=== PATIENT | male | born 1980 | race Caucasian/White ===

== ENCOUNTER → 2017-09-16 | Outpatient (CLI) | payer BC ==
[~2017-09-16] VITALS: Ht 190.5 cm; Wt 106.1 kg
[~2017-09-16] MED LIST: LISINOPRIL10 MG PO; NABUMETONE 500500 M1 PO; ROXICODONE5 MG PO
--- NOTE | ~2017-09-16 | HPC ---
[facility] [address] [place] [address] PAIN MANAGEMENT CONSULTATION Name: JOSE HERRMANNTIS Juju Room #: REG [facility].#: [id number] Admission: 09/16/17 Attend Phys: Timbo Rod DO Discharge: Date of : 76 Report #: [id number] THIS REPORT FOR: //name// CC: Sandra Rod DATE OF SERVICE: 09/16/2017 REFERRING PHYSICIAN: Sandra Vinson MD CHIEF COMPLAINT: Low back pain, left lower extremity pain and paresthesias. HISTORY OF PRESENT ILLNESS: As you know, the patient is a very pleasant 37-year-old male who has been referred to our service by his primary care physician, Dr. Sandra Vinson for evaluation for low back pain, left lower extremity pain with paresthesias. The patient indicates he has undergone physical therapy, which he did not find very helpful. He has been started on tramadol for pain control, but this leads to nausea, vomiting and a sensation of dysphoria that he cannot tolerate. Due to lack of improvement with more conservative treatment options, the patient was referred to our clinic. The patient indicates his pain began to intensify on 09/06/2017, no inciting injury or trauma. He states pain is continuous, steady and constant, describes the pain as burning, pulling, sharp and stabbing, places current pain score anywhere from 3-8/10, daily average at 3-8/10, worst pain has been is 9/10. The patient states that sitting and doing certain activities exacerbate symptoms, staying upright and straight improves his pain. He has been referred to our service by his primary care physician for evaluation, he comes to us today without imaging studies. PAST MEDICAL HISTORY: 1. Hypertension. 2. Diverticulosis. PAST SURGICAL HISTORY: 1. Perforated diverticulum repair and appendectomy. 2. Bilateral . 3. Tonsillectomy. SOCIAL HISTORY: The patient denies tobacco, alcohol, IV or illicit drug use. He is employed in sales. He is working, not receiving workmen's compensation nor is he trying to obtain disability benefits. He is not in litigation in regards to pain. REVIEW OF SYSTEMS: Positive for asthma, this is exercise-induced; low back pain, left lower extremity pain, diverticulitis, and vision changes. All other [address] [address] PAIN MANAGEMENT CONSULTATION Name: LORENA HERRMANN [facility] [id number] Admission: 09/16/17 Attend Phys: Timbo Rod DO Discharge: Date of : 76 Report #: [id number] review of systems negative per 12-point review of systems other than those listed in history of present illness. PAIN IMPACT SCORE: 52/70 indicating severe interference of daily activities secondary to pain. ALLERGIES: No reported drug allergies. CURRENT MEDICATIONS: Tramadol 50 mg q.8 hours p.r.n. for pain, lisinopril 10 mg per day, Propecia 1 mg per day, albuterol 2 puffs q.4 hours p.r.n., and . IMAGING: Only imaging available MRI 02/05/2013, shows mild circumferential disk bulge age-related findings at L2-L3, L3-L4, L4-L5 and L5-S1, there is moderate facet arthropathy noted at L4-L5 and L5-S1, no central canal or neural foraminal stenosis. PHYSICAL EXAMINATION: VITAL SIGNS: Blood pressure 107/75, pulse is 74, respiratory rate 16 and unlabored, the patient is 98% on room air, height 6 feet 3 inches tall, weight 233.8 pounds, and BMI calculated 29.2. GENERAL: Well-developed, well-nourished, well-hydrated 37-year-old male, appears his stated age, he is in no acute distress, awake, alert and oriented x3, current pain score 8/10. HEENT: Normocephalic, atraumatic. Pupils are equal, round, and reactive to light. Extraocular muscles are intact. Sclerae nonicteric without injection. NEUROLOGIC: Cranial nerves 2-12 are grossly intact. Speech is fluent. LUNGS: Clear. No wheeze, rhonchi or rales. CARDIOVASCULAR: Regular. No appreciable gallop or rub. ABDOMEN: Soft, nontender, nondistended, normoactive bowel sounds. EXTREMITIES: Show no clubbing, no cyanosis, and no edema. MUSCULOSKELETAL: Lower extremity strength equal and symmetrical 5/5, intact to light touch from L1 through S2 dermatomes. Deep tendon reflexes equal and symmetrical at patella and Achilles. Ankle clonus negative. Babinski is negative. Seated straight leg raising negative. Supine straight leg raising mildly only positive with distribution of symptoms on the left what appears to be in L5 dermatomal distribution. Gait slightly antalgic favoring left lower extremity over right. Stance is slightly forward flexed lumbar spine, lordotic curvature is maintained. There is palpatory tenderness over the lower lumbar spine. Lumbar provocation testing is met with increasing low back symptoms. ASSESSMENT: 1. Symptomatic lumbar radiculopathy. 2. Lumbosacral spondylosis with radicular symptoms. 3. Chronic intractable pain. PLAN: [facility] [address] [place] [address] PAIN MANAGEMENT CONSULTATION Name: LORENA HERRMANN Room #: REG [facility]#: [id number] Admission: 09/16/17 Attend Phys: Timbo Rod DO Discharge: Date of : 76 Report #: [id number] 1. The patient has been referred to our service for evaluation for low back pain, possible lumbar radicular symptoms, he comes to us today with imaging that is 4-1/2 years old, which is showing some minor arthritic changes and some mild disk changes, typical age-related findings. The information that is 4-1/2 years old does not provide us with much in the way of assistance in assessing the patient's current symptoms. The patient denies injury or trauma this would rule out fractures of any kind, though this cannot rule out disk protrusions and foraminal stenosis that could be the source of the symptoms. We would recommend strongly the patient to undergo MRI of lumbar spine, MRI should be obtained as quickly as possible, we will write for the MRI today and have the patient undergo the procedure and return in followup visit to review the findings themselves. Further and more definitive imaging will be necessary to address the patient's symptoms as his current symptoms are not specific enough to be able to provide full and accurate diagnosis. MRI will be necessary to further evaluate and to address the patient's ongoing symptoms to provide a directed course of treatment. 2. The patient was started on nabumetone 500 mg dose 1 tab p.o. t.i.d., this will be useful for anti-inflammatory effects and he is to watch for side effects of dyspepsia, worsening of blood pressure, lower extremity edema with use of the medication. He will start this medication immediately, contact our clinic with any questions or concerns, if he does have any side effects, discontinue and contact our clinic with his concerns. He is not to take other nonsteroidal anti-inflammatories with this medication. 3. The patient was provided a prescription of oxycodone, apparently he cannot tolerate tramadol, has had hydrocodone in the past and this caused symptoms of nausea and dysphoric effects similar to tramadol, he has had oxycodone, which apparently worked well for him, we will provide him a short dose of oxycodone 5 mg dose 1 tab p.o. t.i.d., I have given him just 60 tablets, this will provide him analgesia over the next week as he is traveling, he will then return and we will discuss the findings of the imaging study and then determine if we can come off those medications and look towards interventional treatments. 4. We wish to thank Dr. Vinson for the opportunity to see this patient in consultation. We will keep you apprised of his response to treatment as we address what appears to be lumbar radicular symptoms and we will also keep you apprised of the findings on the MRI. Again, we wish to thank you for the opportunity to see this patient in consultation. By: [id number] Timbo Rod DO /nt
[2017-09-16 13:08] VITALS: BP 107/75
== END ==
LOC: PAIN 06:38
DX: M47.897 Other spondylosis, lumbosacral region (principal); M54.16 Radiculopathy, lumbar region